=== PATIENT | female | born 1935 | race Caucasian/White ===

== ENCOUNTER 2023-12-17 08:35 | Emergency (ER) | payer MEDICARE, SELFPAY ==
[2023-12-17] VITALS (17 sets, daily range): BP systolic 63–105; BP diastolic 27–46; PULSE 40–98; RESP 11–28; TEMP 36.7–37; O2SAT 94–100; BMI 20.5
--- NOTE | 2023-12-17 08:46 | XR_ITS ---
FINAL REPORT CLINICAL HISTORY: dyspnea FINDINGS: A single view of the chest was obtained. Mild cardiomegaly is noted. A left-sided pacemaker is present. There is a calcified right paratracheal lymph node. Surgical clips are seen in the right axilla. There are chronic changes in both lungs. There is no pleural effusion. There is no pneumothorax. There is no acute osseous abnormality. IMPRESSION: Chronic changes in both lungs with no acute cardiopulmonary process. Reviewed, Interpreted and Dictated by Jovani Melo MD Transcribed by Nicole Costello Authenticated and [facility]
--- NOTE | 2023-12-17 08:46 | CT_ITS ---
FINAL REPORT TECHNIQUE: Axial CT images were performed through the head. Coronal reformatted images were submitted. This study was performed with techniques to keep radiation doses as low as reasonably achievable (ALARA). Individualized dose reduction techniques using automated exposure control or adjustment of mA and/or kV according to the patient's size were employed. CLINICAL HISTORY: ams FINDINGS: There is motion on many of the images which decreases the sensitivity of the exam. There is moderate atrophy. There is extensive decreased attenuation throughout the deep white matter consistent with chronic microvascular ischemia. The ventricles are normal in size. There is no evidence of hemorrhage. There is no mass or edema identified. There is no abnormal extra-axial fluid seen. The sinuses are well aerated. IMPRESSION: Motion decreases the sensitivity of the exam. No acute intracranial process. Atrophy and chronic changes. Reviewed, Interpreted and Dictated by Jovani Melo MD Transcribed by Nicole Costello Authenticated and [facility]
--- NOTE | 2023-12-17 09:06 | ECG_ITS ---
APPROVED REPORT Exam: Resting ECG HR:105 bpm ECG Measurements Heart Rate 105 AXES QRSd 97 QRS 95 QT 367 T 17 QTc 428 Conclusion ATRIAL FIBRILLATION WITH RAPID VENTRICULAR RESPONSE INDETERMINATE AXIS NONSPECIFIC ST & T-WAVE ABNORMALITY ABNORMAL RHYTHM ECG UNCONFIRMED REPORT Electronically signed by : Emigdio Monroe, 12/17/2023 15:09:19
--- NOTE | 2023-12-17 09:21 | ED_ITS ---
Discharge Plan Disposition Patient Disposition: Hospice - Medical Facility Prescriptions Prescriptions: New morphine 20 mg/5 mL (4 mg/mL) solution 5 mg PO Q4H PRN (Reason: pain or shortness of breath) 7 Days Qty: 100 0RF lorazepam [Ativan] 0.5 mg tablet 0.5 mg PO Q4H PRN (Reason: restlessness or anxiety) 7 Days Qty: 21 0RF hyoscyamine sulfate [Levsin] 0.125 mg tablet 0.125 mg PO Q4H PRN (Reason: secretions) 7 Days Qty: 30 0RF No Action atorvastatin 20 mg tablet 20 mg PO DAILY bumetanide 2 mg tablet 2 mg PO DAILY metoprolol succinate 50 mg tablet extended release 24 hr 50 mg PO DAILY isosorbide mononitrate 30 mg tablet extended release 24 hr 30 mg PO DAILY alendronate 70 mg tablet 70 mg PO DAILY metolazone 5 mg tablet 5 mg PO DAILY allopurinol 100 mg tablet 100 mg PO DAILY levothyroxine 50 mcg tablet 50 mcg PO DAILY fenofibrate nanocrystallized 145 mg tablet 145 mg PO DAILY donepezil 5 mg tablet 5 mg PO DAILY fluoxetine 20 mg capsule 20 mg PO DAILY Eliquis 2.5 mg tablet 2.5 mg PO BID Referrals Follow up/Referrals: Easton Chiang [Primary Care Provider] - See instructions Clinical Impressions Clinical Impression: Acute encephalopathy, Septic shock, Acute UTI, Multi-organ system dysfunction, Hypokalemia, Need for comfort care, Agitation, Myocardial injury Instructions Patient Instructions: DI for Altered Mental Status Discharge ED Provider: Helen Monroe General Adult HPI General Chief complaint: Altered Mental Status Stated complaint: Weakness Time Seen by Provider: 12/17/23 08:38 Mode of Arrival: EMS Source of Information: Patient Limitations: No Limitations Description of Symptoms (Recalled from ER Triage Doc. by RN): pt presents to ED with via [facility] for low blood pressure and confusion. pt lives at [facility]. staff at facility report that this morning they did rounds and checked on pt and she was confsued and had a low blood pressure reading. pt is oxygen dependant on 2L [place]. History of Present Illness HPI narrative: Patient is an 88-year-old female brought in today for altered mental status and hypotension. She recently in the last 2 weeks was admitted at [facility]. She had been without living at home on her own but has had progressive decline has had several hospitalizations recently was told that she had fluid around her heart that was recently removed at [place] also she had renal insufficiency at that time. She has had multiple falls ultimately went to an assisted living facility and then to [facility]. Family that at the bedside states that she is DNR however she is full support just would not like intubation chest compressions or heroic life-saving measures. She is not comfort care or hospice. She did recently have a urinary tract infection as well with the last several weeks. No other history able to be obtained secondary patient's clinical status and no other additional information provided from nursing, family. Related Data Home Medications Medication Instructions Recorded Confirmed alendronate 70 mg tablet 70 mg PO DAILY 12/17/23 12/17/23 allopurinol 100 mg tablet 100 mg PO DAILY 12/17/23 12/17/23 apixaban 2.5 mg tablet (Eliquis) 2.5 mg PO BID 12/17/23 12/17/23 atorvastatin 20 mg tablet 20 mg PO DAILY 12/17/23 12/17/23 bumetanide 2 mg tablet 2 mg PO DAILY 12/17/23 12/17/23 donepezil 5 mg tablet 5 mg PO DAILY 12/17/23 12/17/23 fenofibrate nanocrystallized 145 145 mg PO DAILY 12/17/23 12/17/23 mg tablet fluoxetine 20 mg capsule 20 mg PO DAILY 12/17/23 12/17/23 isosorbide mononitrate 30 mg 30 mg PO DAILY 12/17/23 12/17/23 tablet,extended release 24 hr levothyroxine 50 mcg tablet 50 mcg PO DAILY 12/17/23 12/17/23 metolazone 5 mg tablet 5 mg PO DAILY 12/17/23 12/17/23 metoprolol succinate 50 mg 50 mg PO DAILY 12/17/23 12/17/23 tablet,extended release 24 hr Previous Rx's Medication Instructions Recorded hyoscyamine sulfate 0.125 mg 0.125 mg PO Q4H PRN secretions 7 12/17/23 tablet (Levsin) days #30 tabs lorazepam 0.5 mg tablet (Ativan) 0.5 mg PO Q4H PRN restlessness or 12/17/23 anxiety 7 days #21 tabs morphine 20 mg/5 mL (4 mg/mL) oral 5 mg (1.25 mL) PO Q4H PRN pain or 12/17/23 solution shortness of breath 7 days #100 mL Allergies Allergy/AdvReac Type Severity Reaction Status Date / Time iodine Allergy Unknown Verified 12/17/23 11:59 [facility] Disclaimer: The information contained in this section may have been updated after the patient was seen, as this information can be updated by other users. Medical History (Updated 12/17/23 @ 14:52 by Sade Martino RN) Atherosclerotic heart disease Chronic kidney disease Dementia Atrial fibrillation Congestive heart failure Breast cancer Surgical History (Updated 12/17/23 @ 12:56 by Sade Martino RN) History of back surgery Hx of right mastectomy Social History Smoking Status: Never smoker alcohol intake: never current occupational status: other Travel in the last 8 weeks: None ROS Obtained: Yes All systems reviewed & no additional complaints except as documented Physical Exam General General appearance: lethargic and cachectic Chest Chest inspection: Present other (Evidence of previous mastectomy) Respiratory Respiratory exam: Present normal lung sounds bilaterally; Absent respiratory distress Cardiovascular Cardiovascular exam: Present regular rate; Absent normal rhythm Neurological Exam Neurological exam: Absent alert or oriented X3 Expanded Neurological Exam Coma scale eye opening: Spontaneous Coma scale motor response: Localizes to pain Coma scale verbal response: Incomprehensible Coma scale total: 11 Medical Decision Making Wiliam Inquiry Pt receiving controlled substance: No Vital Signs: 12/17/23 08:36 12/17/23 08:42 12/17/23 09:30 Temperature 98.1 F Temperature Source Oral Pulse Rate 81 40 L Pulse Rate [Left Radial] 89 Respiratory Rate 20 25 H 11 L Blood Pressure 76/40 L 63/27 L Blood Pressure [Right Arm] 72/37 L Blood Pressure Mean Blood Pressure Mean [Right Arm] 48 02 Sat by Pulse Oximetry 99 99 Oxygen Delivery Method Nasal Cannula Nasal Cannula Oxygen Flow Rate (LPM) 2 2 12/17/23 09:45 12/17/23 10:00 12/17/23 10:30 Temperature Temperature Source Pulse Rate 89 81 85 Pulse Rate [Left Radial] Respiratory Rate 16 13 23 Blood Pressure 63/36 L 76/32 L 95/36 L Blood Pressure [Right Arm] Blood Pressure Mean Blood Pressure Mean [Right Arm] 02 Sat by Pulse Oximetry 94 L 99 100 Oxygen Delivery Method Nasal Cannula Nasal Cannula Nasal Cannula Oxygen Flow Rate (LPM) 2 2 2 12/17/23 11:00 12/17/23 11:30 12/17/23 12:00 Temperature Temperature Source Pulse Rate 84 65 93 H Pulse Rate [Left Radial] Respiratory Rate 22 26 H 28 H Blood Pressure 105/36 L 80/42 L 90/37 L Blood Pressure [Right Arm] Blood Pressure Mean Blood Pressure Mean [Right Arm] 02 Sat by Pulse Oximetry 98 96 98 Oxygen Delivery Method Room Air Nasal Cannula Nasal Cannula Oxygen Flow Rate (LPM) 2 12/17/23 12:30 12/17/23 13:00 12/17/23 13:30 Temperature Temperature Source Pulse Rate 76 77 95 H Pulse Rate [Left Radial] Respiratory Rate 25 H 18 22 Blood Pressure 79/31 L 70/36 L 64/36 L Blood Pressure [Right Arm] Blood Pressure Mean 41 41 42 Blood Pressure Mean [Right Arm] 02 Sat by Pulse Oximetry 100 99 99 Oxygen Delivery Method Oxygen Flow Rate (LPM) 12/17/23 14:01 12/17/23 14:30 Temperature Temperature Source Pulse Rate 85 98 H Pulse Rate [Left Radial] Respiratory Rate 25 H 15 Blood Pressure 71/34 L 69/31 L Blood Pressure [Right Arm] Blood Pressure Mean Blood Pressure Mean [Right Arm] 02 Sat by Pulse Oximetry 95 98 Oxygen Delivery Method Nasal Cannula Nasal Cannula Oxygen Flow Rate (LPM) 2 2 Lab Data Lab results reviewed: Yes I reviewed the patient's lab results. Lab Results 12/17/23 09:24: SARS-CoV-2 (PCR) Not detected, Influenza A Untype (PCR) Not detected, Influenza Type B (PCR) Not detected 12/17/23 09:32: Urine Color Yellow, Urine Appearance Cloudy, Urine pH 8.5, Ur Specific Pauline 1.015, Urine Protein 3+, Urine Glucose (UA) Trace, Urine Ketones Trace, Urine Blood 3+, Urine Nitrate Negative, Urine Bilirubin 2+ A, Urine Urobilinogen 0.2, Ur Leukocyte Esterase 2+ A, Urine RBC Tntc, Urine WBC Tntc, Ur Squamous Epith Cells 10-20, Urine Bacteria 2+ 12/17/23 09:40: WBC 28.8 H*, RBC 3.98 L, Hgb 12.2, Hct 37.8, MCV 94.9, MCH 30.6, MCHC 32.2, RDW 16.9, Plt Count 167, MPV 10.3, Neut % (Auto) 88.0 H, Lymph % (Auto) 7.4 L, [place] % (Auto) 4.0, Eos % (Auto) 0.2, Baso % (Auto) 0.5, Neut # (Auto) 25.3 H, Lymph # (Auto) 2.1, Refugio # (Auto) 1.2 H, Eos # (Auto) 0.0, Baso # (Auto) 0.2, Total Counted 100, Neutrophils % (Manual) 88 H, Lymphocytes % (Manual) 10, Monocytes % (Manual) 2, Platelet Estimate Normal, RBC Morphology Normal, PT 20.5 H, INR 1.99 H, APTT 45.6 H, Sodium 132 L, Potassium 2.8 L*, C hloride 85 L, Carbon Dioxide 30, Anion Gap 19.8 H, BUN 55 H, Creatinine 3.60 H, Estimated Creat Clear 9, Estimated GFR 12 L*, Est GFR ( Amer) 14 L*, G lucose 65 L, Lactate 4.1 H, Calcium 9.7, Total Bilirubin 2.6 H, AST 116 H, ALT 38, Alkaline Phosphatase 84, Troponin I 2.41 H, Total Protein 7.3, Albumin 3.8, Globulin 3.5 H, Albumin/Globulin Ratio 1.1, TSH 1.53 12/17/23 09:45: VBG pH 7.43 H, VBG pCO2 42.0, VBG pO2 172.5 H, VBG HCO3 27.3, V BG Total CO2 28.5 H, VBG O2 Saturation 99.3 H, VBG Base Excess 2.9 H, VBG Lactic Acid 4.7 H 12/17/23 09:40 12/17/23 09:40 Orders (Tests/Meds): ED MEDICATIONS Generic Name Dose Route Start Last Admin Trade Name Freq PRN Reason Stop Dose Admin Miscellaneous 1 each 12/17/23 10:30 12/17/23 12:06 Vancomycin Consult Request NOTAPPLIC 01/16/24 10:29 Not Given CONSULT PHARMACY JOLENE Discontinued Medications Generic Name Dose Route Start Last Admin Trade Name Freq PRN Reason Stop Dose Admin Lactated Ringer's 1,000 mls @ 999 mls/hr 12/17/23 09:00 05/20/24 10:09 Lactated Ringer's 1000 Ml Bag IV 12/17/23 10:00 999 mls/hr .Q1H1M JOLENE Administration Cefepime HCl 2 gm/ Sodium 100 mls @ 200 mls/hr 12/17/23 10:25 12/17/23 12:03 Chloride IV 12/17/23 10:54 Not Given ONCE ONE Metronidazole 500 mg in 100 mls @ 100 mls/hr 12/17/23 10:25 12/17/23 12:04 Flagyl 500mg/100ml Ivpb IV 12/17/23 11:24 Not Given ONCE ONE Lactated Ringer's 1,640 mls @ 820 mls/hr 12/17/23 10:25 12/17/23 11:00 Lactated Ringer's 1000 Ml Bag 30 ml/kg infuse over 2 hr (1640 ml) 12/17/23 12:24 820 mls/hr IV Administration .Q2H ONE Potassium Chloride/Water 100 mls @ 100 mls/hr 12/17/23 10:30 12/17/23 12:10 Potassium Chloride 10meq/100ml Ivpb IV 12/17/23 13:29 Not Given Q1H JOLENE Vancomycin HCl 1,000 mg/ 250 mls @ 125 mls/hr 12/17/23 11:30 Sodium Chloride IV 12/17/23 13:29 ONCE ONE Lorazepam 2 mg 12/17/23 11:40 12/17/23 11:42 Lorazepam 2mg/Ml Vial IM 12/17/23 11:41 2 mg ONCE ONE Administration Morphine Sulfate 4 mg 12/17/23 11:58 12/17/23 12:08 Morphine 2mg/Ml Syringe IM 12/17/23 11:59 4 mg ONCE ONE Administration ORDERS Category Date Time Status CT head/brain wo con Stat Cat Scan 12/17/23 08:46 Completed CXR --portable [XR chest portable] Stat Exams 12/17/23 08:46 Completed POCUS Point of Care (ER Only) Stat Exams 12/17/23 08:48 Completed CBC w/Auto Diff [Complete Blood Count Auto Diff] Stat Lab 12/17/23 09:40 Completed CMP [Comprehensive Metabolic Panel] Stat Lab 12/17/23 09:40 Completed Lactic Acid Stat Lab 05/20/24 09:40 Completed PT/PTT Stat Lab 12/17/23 09:40 Completed Rapid PCR Covid and Flu A/B Stat Lab 12/17/23 09:24 Completed TSH [Thyroid Stimulating Hormone] Stat Lab 12/17/23 09:40 Completed Trop I [Troponin I] Stat Lab 12/17/23 09:40 Completed UA [Urinalysis and Microscopic] Stat Lab 12/17/23 09:32 Completed Blood Culture Stat Micro 12/17/23 09:45 Received Urine Culture Stat Micro 12/17/23 09:32 Received Venous Blood Gas Stat RT 12/17/23 09:45 Completed ECG Data Tracing #1: I reviewed this ECG and interpreted as documented below: Ventricular rate of 105 atrial fibrillation with RVR there are nonspecific ST depressions in the anterior and lateral precordial leads no significant ST elevations indeterminate axis Medical Decision Narrative: 88-year-old female presenting today with hypotension and altered mental status. Differential is broad including infection and metabolic abnormalities etc. I did limited bedside ultrasound of the heart and lungs which did demonstrate a 2 cm pericardial effusion but no evidence of definitive tamponade. Otherwise her left ventricular ejection fraction was normal no significant pulmonary edema or pleural effusions noted. Working diagnosis is most likely septic shock but do not have an obvious source of infection at the moment. Given the recent urinary tract infection with the last several weeks that is the most likely explanation. IV fluids have been initiated. Workup is pending will reassess. Reassessment 11 AM patient required ultrasound-guided IV was very difficult stick. This IV was placed but then subsequently blew. Labs were able to be obtained. Patient has multiorgan dysfunction T. bili is elevated creatinine at 3.6. I was able to discuss with the family they state that her creatinine had dropped back down to 1.4 after her recent hospitalization so this is a significant increase. She is of course still encephalopathic so has multiorgan dysfunction lactic acid is also elevated and she remains persistently hypotensive. Working diagnosis is septic shock she does have evidence of urinary tract infection which is likely the source. Vancomycin cefepime and Flagyl have been all ordered. I went and discussed with the family that she would need a central line but she is agitated and would likely need to be held down. After this discussion we had an extensive goals of care discussion again at which point the patient's daughter spoke with the rest of family and they decided to proceed with comfort care measures alone. Therefore we are stopping all aggressive medical management other than trying to keep the patient discomfortable as possible. We will discuss the case with hospice and get back to the family. Reassessment 2:53 PM patient required multiple doses of pain medicine and anxiolytics. We were able to talk to our case folder as well as the hospice team who came and evaluated the patient and they will follow patient ultimately decision was to be made to send her back to [facility]. I was able to give a prescription for oral morphine, Ativan, and Levsin, per hospice nurses recommendations that will be given in the event that the patient becomes agitated at the care home. Hospice will be closely following. Family in his entirety is comfortable with this plan and agreeable. Patient was discharged in a critical condition with comfort care back to the care home. Critical Care Critical Care Time Critical Care Time: Yes Attestation: On 12/17/23, the high probability of a clinically significant, sudden or life threatening deterioration of the following system(s) required my full and direct attention, intervention and personal management. The time I documented below is in addition to time spent performing reported procedures but includes the following listed in this critical care notation. Total Time Total Critical Care Time: 65
[2023-12-17 09:40] LABS: Microscopic, Urine URINE MICROSCOPIC (MICROSCOPIC)
[2023-12-17 09:40] LABS: Coronavirus 19, PCR Not Detected (NotDetected); Influenza A, PCR Not Detected (NotDetected); Influenza B, PCR Not Detected (NotDetected)
--- NOTE | 2023-12-17 09:50 | PC.NURSE ---
Pt has been difficult to obtain peripheral IV. This RN attempted 4x and EMS attempted 3x TELEHEALTH COORDINATOR. MD aware. Assisted MD with u/s guided PIV to Left upper arm. 1 set of blood cultures obtained from IV d/t very difficult stick and unable to use right arm d/t mastectomy
[2023-12-17 09:51] LABS: VBG Base Excess 2.9 mmol/L (-2.4-2.3); VBG HCO3 27.3 mmol/L (23-30); VBG Oxygen Saturation 99.3 % (50-70); VBG PH 7.43 mmol/L (7.31-7.41); VBG PO2 172.5 mmol/L (28-40); VBG Total CO2 28.5 mmol/L (23-27)
[2023-12-17 09:54] LABS: Lactate Venous 4.7 mmol/L (0.4-2.0)
[2023-12-17 09:59] LABS: Basophils # 0.2 K/mm3 (0-0.2); Basophils % 0.5 % (0.1-2.0); Eosinophils % 0.2 % (0.1-12.0); Hematocrit 37.8 % (37.0-47.0); Hemoglobin 12.2 g/dL (12.2-16.2); Lymphocytes # 2.1 K/mm3 (0.7-4.5); Lymphocytes % 7.4 % (10-50); Mean Corpuscular HGB Conc 32.2 g/dL (31.8-35.4); Mean Corpuscular Hemoglobin 30.6 pg (27.0-31.2); Mean Corpuscular Volume 94.9 fl (81-99); Mean Platelet Volume 10.3 fl (7.4-10.4); Monocytes # 1.2 K/mm3 (0.1-1.0); Neutrophils # 25.3 K/mm3 (1.8-7.8); Platelet Count 167 K/mm3 (142-424); Red Blood Count 3.98 M/mm3 (4.20-5.40); Red Cell Distribution Width 16.9 % (11.5-17.5); White Blood Count 28.8 K/mm3 (4.8-10.8)
[2023-12-17 10:09] LABS: Blood, Urine 3+ (Negative); Color,Urine YELLOW (Yellow); Glucose,Urine (UA) TRACE (Negative); Ketones,Urine TRACE (Negative); Leukocyte Esterase,Urine 2+ (Negative); Nitrate,Urine Negative (Negative); PH,Urine 8.5 (5.0-8.5); Protein,Urine 3+ (Negative); Specific Gravity, Urine 1.015 (1.005-1.030); Urobilinogen,Urine 0.2 EU/dl (0.2)
[2023-12-17] MEDS: LACTATED RINGERS 1000ML 1,000 ML 999 ML IV (10:09)
[2023-12-17 10:14] LABS: Alanine Aminotransferase 38 U/L (12-78); Albumin Level 3.8 g/dl (3.5-5.0); Albumin/Globulin Ratio 1.1 (1.1-1.8); Alkaline Phosphatase 84 U/L (38-126); Anion Gap 19.8 mEq/L (5-15); Aspartate Amino Transferase 116 U/L (14-36); Bilirubin,Total 2.6 mg/dl (0.2-1.3); Blood Urea Nitrogen 55 mg/dl (7-17); Calcium 9.7 mg/dl (8.4-10.2); Carbon Dioxide 30 mmol/L (22.0-30.0); Chloride 85 mmol/L (98-107); Creatinine Clearance Estimated 9 mL/min (50-200); Estimated Glomerular Filt Rate 12 ml/min (>60); GFR (African American) 14 ML/MIN (>60); Globulin 3.5 g/dL (1.3-3.2); Glucose 65 mg/dl (74-100); Sodium 132 mmol/L (136-145); Total Protein,Serum 7.3 g/dl (6.3-8.2)
[2023-12-17 10:15] LABS: MANUAL DIFFERENTIAL MANUAL DIFFERENTIAL (MANUAL DIFF)
[2023-12-17 10:17] LABS: Lactic Acid 4.1 mmol/L (0.7-2.1)
[2023-12-17 10:18] LABS: Potassium 2.8 mmoL/L (3.5-5.1)
[2023-12-17 10:20] LABS: Activated Partial Thrombo Time 45.6 seconds (22.8-30.6); INR 1.99 (0.9-1.1); Prothrombin Time 20.5 seconds (10.1-12.5)
--- NOTE | 2023-12-17 10:25 | PC.NURSE ---
Dr. Monroe notified that pt's IV has infiltrated and had to be removed.
--- NOTE | 2023-12-17 10:26 | PC.NURSE ---
Called lab to check status of urine. states it will be 5 min
[2023-12-17 10:29] LABS: Appearance,Urine Cloudy (Clear); Bilirubin,Urine 2+ (Negative)
[2023-12-17 10:30] LABS: RBC,Urine TNTC #/hpf (0-3); WBC,Urine TNTC #/hpf (0-3)
--- NOTE | 2023-12-17 10:30 | PC.NURSE ---
Dr. Monroe at bedside discussing POC and results thus far.
[2023-12-17 10:31] LABS: Bacteria,Urine 2+ /lpf
--- NOTE | 2023-12-17 10:51 | PC.NURSE ---
Dr. Monroe s/w pt's daughter and family regarding POC and decision on treatment.
[2023-12-17 10:59] LABS: Lymphocytes % 10 % (10-50); Monocytes % 2 % (2-9); Neutrophils % 88 % (42-76); Platelet Estimate Normal; RBC Morphology Normal; Total Cells Counted 100
[2023-12-17] MEDS: LACTATED RINGERS 1000ML 1,640 ML 820 ML IV (11:00)
--- NOTE | 2023-12-17 11:00 | PC.NURSE ---
Family would like to pursue the route of hospice and comfort care. Calling hospice to arrange consult & possibly admission to an inpatient facility
--- NOTE | 2023-12-17 11:03 | PC.NURSE ---
call made to hospice care. This nurse spoke with Jessa. Pt records faxed to hospice for evaluation. [phone]
[2023-12-17] MEDS: LORazepam 2MG/ML VIAL 2 MG IM (11:42)
[2023-12-17 12:02] LABS: Thyroid Stimulating Hormone 1.53 uIU/mL (0.465-4.68)
[2023-12-17 12:03] LABS: Troponin I 2.41 ng/ml (0.00-0.034)
[2023-12-17] MEDS: MORPHINE 2MG/ML SYRINGE 4 MG IM (12:08)
--- NOTE | 2023-12-17 12:16 | PC.NURSE ---
pt is resting in bed no needs family at bs
[2023-12-17 13:52] LABS: Reflex Lactic Add Lactic Reflex
--- NOTE | 2023-12-17 14:54 | PC.NURSE ---
Called report to Anup Chavez. Printed d/c instructions and notified [facility]
--- NOTE | 2023-12-17 14:59 | SW/DCPLANNER ---
The plan for this patient is to discharge back to [facility] w/ Hospice services. Lillian cortes/ [facility] and Edward cortes/ Hospice did speak w/ patient and family onsite.
== END 2023-12-17 15:16 | disposition hospice, inpatient (51) ==
PROVIDERS: Emergency Provider Student in an Organized Health Care Education/Training Program; PCP Pediatrics
DX: A41.89 Other specified sepsis (principal); R65.21 Severe sepsis with septic shock; B96.29 Other Escherichia coli [E. coli] as the cause of diseases classified elsewhere; N39.0 Urinary tract infection, site not specified; G93.41 Metabolic encephalopathy; R74.02 Elevation of levels of lactic acid dehydrogenase [LDH]; E87.6 Hypokalemia; E87.1 Hypo-osmolality and hyponatremia; I31.39 Other pericardial effusion (noninflammatory); R45.1 Restlessness and agitation; D72.829 Elevated white blood cell count, unspecified; I48.91 Unspecified atrial fibrillation; I5A Non-ischemic myocardial injury (non-traumatic); N18.9 Chronic kidney disease, unspecified; Z51.5 Encounter for palliative care
CPT/HCPCS: 70450; 71045; 80053; 81001; 82803; 83605; 84443; 84484; 85007; 85025; 85610; 85730; 87040; 87077; 87086; 87088; 87186; 87636; 93005; 96361; 96365; 96366; 96367; 96372; 99291